=== PATIENT | male | born 1955 | race Caucasian/White ===

== ENCOUNTER 2020-07-26 08:10 | Inpatient (IN) | payer OTHER ==
[~2020-07-26] VITALS: Ht 177.8 cm; Wt 98.9 kg
[~2020-07-26 08:10] MED LIST: NAPROSYN500 MG PO
[2020-07-26 08:51] LABS: BASOPHILS 0.7 % (0-2); EOSINOPHILS 2.9 % (0-7); HEMOGLOBIN 14.7 g/dL (13.5-17.5); IMMATURE GRANULOCYTES 0.2 % (0-5); LYMPHOCYTES 23.7 % (15-50); MCH 30.9 pg (26.0-34.0); MCHC 32.7 g/dL (31.0-37.0); MCV 94.5 fL (80.0-100.0); MEAN PLATELET VOLUME 10.3 fL (7.4-10.4); MONOCYTES 6.8 % (2-11); NEUTROPHILS 65.7 % (40-80); PLATELET COUNT 267 10x3/uL (130-400); RBC 4.76 10x6/uL (4.20-6.10); RDW 13.1 % (11.5-14.5); WBC 4.6 10x3/uL (4.8-10.8)
[2020-07-26 09:08] LABS: ANION GAP 8.6 mmol/L (8-16); CALCIUM 8.7 mg/dL (8.5-10.1); CARBON DIOXIDE 32.5 mmol/L (21.0-32.0); CREATININE - SERUM 1.1 mg/dL (0.6-1.3); POTASSIUM - SERUM 5.1 mmol/L (3.5-5.1)
[2020-07-26 09:29] VITALS: BP 152/68; BMI 31.3
[2020-07-26 18:04] VITALS: BP 122/70
--- NOTE | 2020-07-26 18:13 | NUR ---
RECEIVED PATIENT FROM RECOVERY. A&O, SLIGHTLY DROWSY. FAMILY AT BEDSIDE. NO C/O PAIN. NO S/S OF ACUTE DISTRESS NOTED. WOUND VAC TO ABDOMEN. PIZNAO CATH PRESENT. ON 4L 02, NC. SCDS ON. VITALS STABLE. DENIES ANY NEEDS AT THIS TIME. CALL LIGHT IN REACH. WILL CONTINUE TO MONITOR.
--- NOTE | 2020-07-26 19:45 | NUR ---
ASSUMED CARE OF PATIENT AT 1900, PATIENT RESTING QUIETLY WITH EYES CLOSED, AWAKENS TO VERBAL STIMULI, NO DISTRESS NOTED, PATIENT C/O NAUSEA, ZOFRAN 4MG IVP GIVEN, WOUND VAC TO ABDOMEN INTACT, DRESSING TO LEFT AND RIGHT ABDOMEN C/D/I, PIZANO DRAINING VIA GRAVITY WITHOUT COMPLICATIONS, SCD'S ON, IV INFUSING WITHOUT COMPLICATIONS, WILL CONTINUE TO MONITOR PATIENT, CALL LIGHT WITHIN REACH
[2020-07-26 20:00] VITALS: BP 127/83
[2020-07-26 22:04] VITALS: BP 127/82; BMI 31.3
--- NOTE | 2020-07-27 01:00 | NUR ---
DILAUDID HOT BOX SPOTTER INFUSING WITHOUT COMPLICATION, EXPLAINED TO PATIENT HOW TO USE, PATIENT VERBALIZED UNDERSTANDING, PATIENT REQUESTED ICE PACK FOR ABDOMEN, WILL CONTINUE TO MONITOR PATIENT, CALL LIGHT WITHIN REACH
[2020-07-27 04:00] VITALS: BP 124/78
[2020-07-27 07:08] LABS: MAGNESIUM - SERUM 1.9 mg/dL (1.8-2.4); PHOSPHOROUS 2.7 mg/dL (2.5-4.9)
[2020-07-27 09:34] VITALS: BP 129/76
[2020-07-27 13:32] VITALS: BP 123/69
[2020-07-27 17:45] VITALS: BP 124/74
[2020-07-27 20:00] VITALS: BP 130/74
[2020-07-28 07:03] LABS: BASOPHILS 0.1 % (0-2); EOSINOPHILS 0.4 % (0-7); HEMATOCRIT 37.1 % (42.0-54.0); IMMATURE GRANULOCYTES 0.3 % (0-5); LYMPHOCYTES 11.7 % (15-50); MCH 30.7 pg (26.0-34.0); MCHC 32.3 g/dL (31.0-37.0); MCV 94.9 fL (80.0-100.0); MEAN PLATELET VOLUME 10.9 fL (7.4-10.4); MONOCYTES 10.2 % (2-11); NEUTROPHILS 77.3 % (40-80); PLATELET COUNT 241 10x3/uL (130-400); RBC 3.91 10x6/uL (4.20-6.10); RDW 13.5 % (11.5-14.5)
[2020-07-28 07:22] LABS: ALBUMIN 2.8 g/dL (3.4-5.0); ALKALINE PHOSPHATASE 67 U/L (30-120); ALT (SGPT) 15 U/L (10-68); BILIRUBIN - TOTAL 0.78 mg/dL (0.2-1.3); CALC OSMOLALITY 276 mosm/kg (275-300); CALCIUM 7.8 mg/dL (8.5-10.1); CHLORIDE - SERUM 106 mmol/L (98-107); GLUCOSE 95 mg/dL (74-106); MAGNESIUM - SERUM 2.1 mg/dL (1.8-2.4); PROTEIN - SERUM 5.7 g/dL (6.4-8.2); SODIUM 138 mmol/L (136-145); TROPONIN-I < 0.017 ng/mL (0.000-0.060); UREA NITROGEN 16 mg/dL (7-18); eGFR NON AFRICAN AMERICAN 80 mL/min (90-120)
[2020-07-28 07:26] LABS: PHOSPHOROUS 1.6 mg/dL (2.5-4.9)
[2020-07-28 09:17] VITALS: BP 113/75; BP 96/42
[2020-07-28 13:30] VITALS: BP 131/84
--- NOTE | 2020-07-28 13:45 | NUR ---
PT ALERT X 4. BREATH SOUNDS DIMINISHED TO LOWER LOBES, PT REPORTING FEELING WHEEZY. GIVEN INCENTIVE SPIROMETER AND EDUCATED ON USE AND PURPOSE. IV TO LEFT HAND PATENT, DRESSING CDI. WOUND VAC TO MIDLINE ABDOMEN, BORDERED GAUZE TO BILAT OUTER ABDOMEN. PIZANO IN PLACE. PT REPORTING PAIN OF 5/10, TOOL MACHINE SET UP OPERATOR IN USE, WILL CONTINUE TO MONITOR. AT BEDSIDE. BED LOW, CALL LIGHT IN REACH. NO OTHER NEEDS AT THIS TIME.
[2020-07-28 19:09] VITALS: BP 129/83
--- NOTE | 2020-07-28 19:44 | NUR ---
PATIENT SITTING UP IN THE CHAIR WITH NO S/S OF DISTRESS AND DENIES NEEDS AT THIS TIME. BED IN LOWEST POSITION AND CALL LIGHT WITHIN REACH. ENCOURAGED THE PATIENT TO CALL IF HE HAS NEEDS. WILL CONTINUE TO MONITOR.
[2020-07-28 20:00] VITALS: BP 139/89
[2020-07-29] VITALS: BP 122/71
[2020-07-29 04:00] VITALS: BP 122/71
[2020-07-29 05:30] LABS: BASOPHILS 0.4 % (0-2); EOSINOPHILS 3.3 % (0-7); HEMATOCRIT 36.8 % (42.0-54.0); IMMATURE GRANULOCYTES 0.3 % (0-5); LYMPHOCYTES 18.6 % (15-50); MCH 31.1 pg (26.0-34.0); MCHC 32.6 g/dL (31.0-37.0); MCV 95.3 fL (80.0-100.0); MEAN PLATELET VOLUME 10.5 fL (7.4-10.4); MONOCYTES 12.2 % (2-11); NEUTROPHILS 65.2 % (40-80); PLATELET COUNT 236 10x3/uL (130-400); RBC 3.86 10x6/uL (4.20-6.10); RDW 13.5 % (11.5-14.5); WBC 7.2 10x3/uL (4.8-10.8)
[2020-07-29 05:59] LABS: ALBUMIN 2.6 g/dL (3.4-5.0); ALKALINE PHOSPHATASE 61 U/L (30-120); ALT (SGPT) 18 U/L (10-68); BILIRUBIN - TOTAL 0.79 mg/dL (0.2-1.3); CALC OSMOLALITY 276 mosm/kg (275-300); CALCIUM 7.9 mg/dL (8.5-10.1); CARBON DIOXIDE 25.9 mmol/L (21.0-32.0); CHLORIDE - SERUM 106 mmol/L (98-107); CREATININE - SERUM 0.8 mg/dL (0.6-1.3); GLUCOSE 86 mg/dL (74-106); POTASSIUM - SERUM 3.8 mmol/L (3.5-5.1); PROTEIN - SERUM 5.8 g/dL (6.4-8.2); SODIUM 138 mmol/L (136-145); UREA NITROGEN 18 mg/dL (7-18); eGFR NON AFRICAN AMERICAN > 90 mL/min (90-120)
[2020-07-29 08:56] VITALS: BP 119/73
--- NOTE | 2020-07-29 11:34 | NUR ---
PT ALERT X 4. BREATH SOUNDS CLEAR BILAT. IV TO LEFT HAND PATENT, DRESSING CDI. BOWEL SOUNDS HYPO X 4, PT CONTINUES TO ATTEMPT TO HAVE BM, UNSUCCESSFUL. WOUND VAC TO MIDLINE INCISION, BORDERED GAUZE TO BILAT SIDES OF ABDOMEN. PIZANO IN PLACE. PT UP TO CHAIR. BED LOW, CALL LIGHT IN REACH. NO OTHER NEEDS AT THIS TIME.
[2020-07-29 12:39] VITALS: BP 112/74
[2020-07-29 15:00] VITALS: Ht 177.8 cm; Wt 98.9 kg
--- NOTE | 2020-07-29 17:14 | OP ---
PATIENT NAME: WESTON KAY MEDICAL RECORD: [id number] :59 LOCATION:D[id number] ADMISSION DATE:07/26/20 SURGEON: DOMINICK REYES MD DATE OF OPERATION: 07/26/2020 PREOPERATIVE DIAGNOSIS: Symptomatic ventral incisional hernias. POSTOPERATIVE DIAGNOSES: Multiple symptomatic incarcerated ventral incisional hernias with inability to approximate the rectus muscles in the midline utilizing traditional herniorrhaphy techniques. PROCEDURES: Open ventral incarcerated incisional hernia repairs with Ventralight ST mesh and the bilateral component separation technique. The myofascial release on the right was 18.5 cm and on the left was 19.5 cm. SURGEON: Dominick Reyes MD MOTOR SETTER: None. BLOOD LOSS: Please see the anesthesia sheet. COMPLICATIONS: None. The risks, possible complications and alternatives to the procedure were explained to the patient. He elects to proceed. The discussion specifically included, but was not limited to, bleeding requiring emergency reoperation, infection, intestinal injury. The patient thought this was going to be outpatient surgery or surgery where he would be in the hospital overnight. I told him that this is a fairly extensive abdominal operation and that he would be in the hospital, likely from 4-7 days. The hernia defect was a "Burundian cheese" type hernia defect where there were multiple hernias and it appeared that pretty much every place that a fascial suture had been placed. There was a hernia defect present. Most of the incarcerated contents included fat and preperitoneal fat and omentum only. There was one that contain a loop of small bowel. OPERATIVE COURSE: The patient was conveyed the operating room electively on 07/26/2020. General anesthesia was induced by the anesthesia staff. The abdomen was sterilely prepped and draped. A midline incision was accomplished. Sharp dissection was carried down through the skin and subcutaneous tissues. The peritoneal cavity was entered bluntly. I took down the falciform ligament utilizing the laparoscopic EnSeal device. I then excised some of the preperitoneal fat with the laparoscopic EnSeal device. There were adhesions including grade I, II, and III adhesions. These were lysed with the scissors. The portion of the adhesiolysis took about 25 minutes. I reduced all of the hernia defects. I irrigated and aspirated. There was no bleeding. The description of the hernia defects as listed above. I wanted to place my mesh intraabdominally or subfascially. I was unable to create a subfascial plane. OPERATIVE REPORT [id number] WESTON KAY Therefore, I wanted to place my mesh intraperitoneal. I tried to bring the rectus muscles together in the midline. I was unable to do this. On the left side, a parasagittal incision was accomplished between the anterior superior iliac spine and the right costal margin. Sharp dissection was carried down through the skin and subcutaneous tissues to the external oblique muscle and aponeurosis. This was divided with electrocautery. This was divided cephalad fairly extensively as well as caudad. Dimensions were obtained and these are listed above. Some additional finger dissection was performed underneath this myofascial release in order to allow for easy movement of the rectus abdominis muscles. Despite this release on the left side, I was unable to approximate the rectus muscles in the midline in a tensionless fashion. I went around to the right side. A parasagittal incision was accomplished. Sharp dissection was carried down through the skin and subcutaneous tissues. I identified the external oblique muscle. The muscle was incised with electrocautery. I was then able to insert my finger underneath the muscle and performed a myofascial release proximally and then distally. Some additional finger dissection was performed in order to free up the muscle and fascia. The dimensions were obtained. They are listed above. With his bilateral release, I was then able to bring the rectus abdominis muscles together in the midline. Intraabdominally, I placed the omentum over the small bowel. I placed a Ventralight ST mesh into the peritoneal cavity. The long axis was the cephalad caudad access. Utilizing a parachute type technique, I sutured 0 Surgidacs at 12, 3, 6, and 9 o'clock. Each one had 2 tags. At the 12 and 6 o'clock positions, I advanced a laparoscopic suture passer through the midline fascia and each time I grabbed a 0 Surgidac tag. I then tied the mesh. At the 3 and 9 o'clock positions, small skin incisions were accomplished. I advanced the laparoscopic suture passer through the skin and subcutaneous tissues and then through the abdominal wall. At each site, the laparoscopic suture passer was passed twice. Each time I grasped a tag of the suture. I then tied down the 3 o'clock position suture. I tacked the mesh to the overlying muscle and fascia with the SecureStrap Tacker. The midline fascia was approximated with a running looped #1 PDS from the cephalad caudad dimension. With these sutures, I incorporated the portion of the underlying mesh. In the midline, the subdermis was approximated with interrupted 3-0 Vicryls. The skin was approximated with metallic clips. Through the 2 myofascial release incisions, the subcutaneous tissues were closed with interrupted 3-0 Vicryl sutures. The external oblique aponeurosis was closed with 3-0 Vicryl sutures. The patient was then extubated and conveyed to post-anesthesia care unit where he was in stable condition. TRANSINT:[id number] Voice Confirmation ID: [id number] DOCUMENT ID: [id number] OPERATIVE REPORT [id number] WESTON KAY ROBERT MD at 1714 CC: IRENE REID [id number] DICTATION DATE: 07/29/20 1221 AUTOMATIC BUFFING WHEEL FORMER: 07/29/20 1707 ADM IN [facility] [address] [id number]
[2020-07-29 18:45] VITALS: BP 131/75
--- NOTE | 2020-07-29 19:00 | NUR ---
ASSUMED CARE OF PATIENT, PATIENT AWAKE SITTING UP IN CHAIR WATCHING TV, NO DISTRESS NOTED, IV INFUSING WITHOUT COMPLICATIONS, WOUND VA INTACT, PATIENT DENIES NEEDS AT THIS TIME, WILL CONTINUE TO MONITOR PATIENT, CALL LIGHT WITHIN REEACH
[2020-07-29 20:00] VITALS: BP 126/72
[2020-07-30 00:35] VITALS: BP 118/68
[2020-07-30 04:00] VITALS: BP 102/59
[2020-07-30 05:22] LABS: BASOPHILS 0.3 % (0-2); EOSINOPHILS 3.5 % (0-7); HEMATOCRIT 33.8 % (42.0-54.0); IMMATURE GRANULOCYTES 0.2 % (0-5); LYMPHOCYTES 12.6 % (15-50); MCH 30.6 pg (26.0-34.0); MCHC 32.5 g/dL (31.0-37.0); MCV 94.2 fL (80.0-100.0); MEAN PLATELET VOLUME 10.4 fL (7.4-10.4); MONOCYTES 13.6 % (2-11); NEUTROPHILS 69.8 % (40-80); PLATELET COUNT 248 10x3/uL (130-400); RBC 3.59 10x6/uL (4.20-6.10); RDW 12.8 % (11.5-14.5)
[2020-07-30 06:03] LABS: ALBUMIN 2.3 g/dL (3.4-5.0); ALKALINE PHOSPHATASE 50 U/L (30-120); ALT (SGPT) 19 U/L (10-68); BILIRUBIN - TOTAL 0.81 mg/dL (0.2-1.3); CALC OSMOLALITY 278 mosm/kg (275-300); CALCIUM 7.7 mg/dL (8.5-10.1); CARBON DIOXIDE 26.4 mmol/L (21.0-32.0); CHLORIDE - SERUM 106 mmol/L (98-107); CREATININE - SERUM 0.8 mg/dL (0.6-1.3); GLUCOSE 83 mg/dL (74-106); MAGNESIUM - SERUM 1.9 mg/dL (1.8-2.4); POTASSIUM - SERUM 3.7 mmol/L (3.5-5.1); PROTEIN - SERUM 5.3 g/dL (6.4-8.2); SODIUM 139 mmol/L (136-145); UREA NITROGEN 18 mg/dL (7-18); eGFR NON AFRICAN AMERICAN > 90 mL/min (90-120)
--- NOTE | 2020-07-30 08:00 | NUR ---
HE IS WALKING TO THE BATHROOM. HE HAS PASSED GAS X 2, NO BM YET. HE HAS A PIZANO. THIS FAMILY IS AT THE BEDSIDE. HE HAS A PROPERTY AND SUPPLY OFFICER. THE CALL LIGHT IS WITHIN REACH.
[2020-07-30 09:13] VITALS: BP 116/66
[2020-07-30 11:36] VITALS: BP 123/71
[2020-07-30 17:51] VITALS: BP 115/70; BP 125/73
--- NOTE | 2020-07-30 19:50 | NUR ---
SITTING UP IN CHAIR IN ROOM. ALERT AND ORIENTED X4. RESP EVEN AND NONLABORED. WOUND VAC NOTED TO MIDLINE ABD INCISION TO 125MMHG CONT SUCTION WITH NO DRAINAGE IN TUBING OR CANISTER. DRSG NOTED TO RT ABD, LT ABD AND MID LT ABD ARE C/D/I. STATES HE IS PASSING GAS BUT NO BM YET. ABD IS DISTENDED AND BS ARE HYPOACTIVE X4 QUADS. NS @ 100 MLHR INFUSING IN LT FOREARM. POLE FRAME CONSTRUCTION WORKER DILUADID IN USE. DENIES PAIN. CL IN REACH.
[2020-07-30 20:00] VITALS: BP 139/79
--- NOTE | 2020-07-30 22:00 | NUR ---
BACK TO BED WITH ASSIST X1. CL IN REACH.
--- NOTE | 2020-07-31 03:39 | NUR ---
HAS RESTED WELL SO FAR THIS SHIFT. NO DISTRESS. LYING IN BED WITH EYES CLOSED. RESP EVEN AND NONLABORED. CL IN REACH.
[2020-07-31 04:00] VITALS: BP 134/73
[2020-07-31 06:57] LABS: BASOPHILS 0.4 % (0-2); EOSINOPHILS 4.8 % (0-7); HEMATOCRIT 35.7 % (42.0-54.0); HEMOGLOBIN 11.7 g/dL (13.5-17.5); IMMATURE GRANULOCYTES 0.4 % (0-5); LYMPHOCYTES 19.7 % (15-50); MCH 30.5 pg (26.0-34.0); MCHC 32.8 g/dL (31.0-37.0); MCV 93.2 fL (80.0-100.0); MEAN PLATELET VOLUME 10.6 fL (7.4-10.4); MONOCYTES 12.2 % (2-11); NEUTROPHILS 62.5 % (40-80); PLATELET COUNT 285 10x3/uL (130-400); RBC 3.83 10x6/uL (4.20-6.10); WBC 5.2 10x3/uL (4.8-10.8)
[2020-07-31 07:29] LABS: ALBUMIN 2.6 g/dL (3.4-5.0); ALKALINE PHOSPHATASE 57 U/L (30-120); ALT (SGPT) 23 U/L (10-68); BILIRUBIN - TOTAL 0.83 mg/dL (0.2-1.3); CALC OSMOLALITY 277 mosm/kg (275-300); CHLORIDE - SERUM 105 mmol/L (98-107); CREATININE - SERUM 0.9 mg/dL (0.6-1.3); GLUCOSE 97 mg/dL (74-106); POTASSIUM - SERUM 3.5 mmol/L (3.5-5.1); PROTEIN - SERUM 5.7 g/dL (6.4-8.2); SODIUM 139 mmol/L (136-145); eGFR NON AFRICAN AMERICAN > 90 mL/min (90-120)
[2020-07-31 07:33] LABS: UREA NITROGEN 12 mg/dL (7-18)
--- NOTE | 2020-07-31 07:59 | NUR ---
PT RESTING IN BED WITH EYES OPEN CALL LIGHT IN REACH NO PROBLEMS WILL MONITER
[2020-07-31 09:35] VITALS: BP 138/82
[2020-07-31 13:25] VITALS: BP 121/76
--- NOTE | 2020-07-31 13:26 | MORECARE ---
CASE MANAGEMENT DISCHARGE SUMMARY PATIENT: WESTON KAY UNIT: [id number] ADM DATE: 07/26/20 AGE: 65 : 59 SEX: M ROOM/BED: D.2231 AUTHOR: LA ALLAN PHYSICIAN: REFERRING PHYSICIAN: GRACIA REYES MD DATE OF SERVICE: 07/31/20 Discharge Plan Patient Name: WESTON KAY Facility: [facility]:[place] : 1955 Planned Disposition: Home with Home Health Anticipated Discharge Date: Discharge Date: Expected LOS: Initial Reviewer: [email or web address] Initial Review Date: 07/31/2020 Generated: 07/31/20 2:25 pm Comments DCP- Discharge Planning Updated by [email or web address]: Rola Noble on 07/31/20 12:[address] Patient Name: WESTON KAY Admission Status: Elective Accout number: [id number] Admission Date: 07-26-2020 : 1955 Admission Diagnosis:INCISIONAL HERNIA WITH OBSTRUCTION, WITHOUT GANGRENE Attending: GRACIA REYES Current LOS: 5 Anticipated DC Date: Planned Disposition: Home with Home Health Primary Insurance: [facility] PPO Discharge Planning Comments: CM met with patient at bedside after explaining CM role and obtaining verbal consent. CM discussed availability / needs of home health, REHAB and medical equipment. STATES DR. REYES NURSE WAS HERE TODAY AND SAID SHE WOULD SET HIM UP WITH [facility] AND HE HAS A WOUND VAC. STATES POSSIBLE DC IS WEDNESDAY. CM TO FOLLOW AND ASSIST NEEDED WITH DC PLANNING/NEEDS. Special Delivery Mail Carrier: Rola Noble DCPIA - Discharge Planning Initial Assessment Updated by [email or web address]: Rola Noble on 07/31/20 1:19 pm * Is the patient Alert and Oriented? Yes * PCP REID * Pharmacy [facility]. * Preadmission Environment Home with Family * ADLs Independent * Equipment None * Community resources currently utilized None * Additional services required to return to the preadmission environment? Yes * Can the patient safely return to the preadmission environment? Yes * Has this patient been hospitalized within the prior 30 days at any hospital? No External Providers [facility] Next Contact Date: Service Request Date: Service Type: Resolution: Reviewer: Comments: Patient Name: WESTON KAY Page [phone] at 1326 All edits/amendments must be made on the electronic document DICTATION DATE: 07/31/201324 RECREATIONAL LEADER: HERNANDEZ 07/31/201324 RPT#: [id number] DC DATE: STATUS: ADM IN [facility] [address] [place] [address] END OF REPORT
--- NOTE | 2020-07-31 13:44 | MORECARE ---
CASE MANAGEMENT DISCHARGE SUMMARY PATIENT: WESTON KAY UNIT: [id number] ADM DATE: 07/26/20 AGE: 65 : 59 SEX: M ROOM/BED: D.2231 AUTHOR: LA ALLAN PHYSICIAN: REFERRING PHYSICIAN: GRACIA REYES MD DATE OF SERVICE: 07/31/20 Discharge Plan Patient Name: WESTON KAY Facility: [facility]:[place] : 1955 Planned Disposition: Home with Home Health Anticipated Discharge Date: Discharge Date: Expected LOS: Initial Reviewer: [email or web address] Initial Review Date: 07/31/2020 Generated: 07/31/20 2:43 pm Comments DCP- Discharge Planning Updated by [email or web address]: Rola Noble on 07/31/20 12:[address] Patient Name: WESTON KAY Admission Status: Elective Accout number: [id number] Admission Date: 07-26-2020 : 1955 Admission Diagnosis:INCISIONAL HERNIA WITH OBSTRUCTION, WITHOUT GANGRENE Attending: GRACIA REYES Current LOS: 5 Anticipated DC Date: Planned Disposition: Home with Home Health Primary Insurance: [facility] PPO Discharge Planning Comments: CM met with patient at bedside after explaining CM role and obtaining verbal consent. CM discussed availability / needs of home health, REHAB and medical equipment. STATES DR. REYES NURSE WAS HERE TODAY AND SAID SHE WOULD SET HIM UP WITH [facility] AND HE HAS A WOUND VAC. STATES POSSIBLE DC IS WEDNESDAY. CM TO FOLLOW AND ASSIST NEEDED WITH DC PLANNING/NEEDS. Assistant Loan Processor: Rola Noble Appended by Rola Noble on 07/31/2020 13:37 CDT: I HAVE FAXED FS TO [email or web address] WITH ANTICIPATED DC DATE OF WEDNESDAY. DCPIA - Discharge Planning Initial Assessment Updated by [email or web address]: Rola Noble on 07/31/20 1:19 pm * Is the patient Alert and Oriented? Yes * PCP REID * Pharmacy [facility]. * Preadmission Environment Home with Family * ADLs Independent * Equipment None * Community resources currently utilized None * Additional services required to return to the preadmission environment? Yes * Can the patient safely return to the preadmission environment? Yes * Has this patient been hospitalized within the prior 30 days at any hospital? No Last DP export: 07/31/20 12:26 pm Patient Name: WESTON KAY Page 13689 at 1344 All edits/amendments must be made on the electronic document DICTATION DATE: 07/31/20 1344 ART INSTALLER: HERNANDEZ 07/31/20 1344 RPT#: [id number] DC DATE: STATUS: ADM IN [facility] [address] [place] [address] END OF REPORT
--- NOTE | 2020-07-31 16:07 | NUR ---
UP IN CHAIR,WITHOUT NEEDS
--- NOTE | 2020-07-31 16:50 | NUR ---
PT RESTING IN BED WITH EYES OPEN CALL LIGHT IN REACH NO PROBLEMS WILL MONITER
[2020-07-31 17:36] VITALS: BP 109/66
--- NOTE | 2020-07-31 19:20 | NUR ---
LYING IN BED. ALERT AND ORIENTED X4. RESP EVEN AND NONLABORED. WOUND VAC NOTED TO MIDLINE ABD INCISION. LARGE DRSG NOTED TO LT AND RT ABD AND SMALL DRSG NOTED TO LT MID ABD ARE C/D/I. NO DRAINAGE NOTED IN WOUND VAC. AMBULATORY. NS @ 100 MLHR INFUSING IN LT FOREARM WITH DILAUDID HOBBER IN USE. RATES PAIN IN BACK 4 ON PAIN SCALE. NO DISTRESS. SR ELEVATED X2. CL IN REACH.
[2020-07-31 20:00] VITALS: BP 123/80
--- NOTE | 2020-08-01 01:09 | NUR ---
LYING ON LT SIDE IN BED WITH EYES CLOSED. RESP NONLABORED. NO DISTRESS. CL IN REACH.
[2020-08-01 04:00] VITALS: BP 123/73; BP 127/78
[2020-08-01 05:03] LABS: HEMATOCRIT 32.4 % (42.0-54.0); HEMOGLOBIN 10.9 g/dL (13.5-17.5); LYMPHOCYTES 23.9 % (15-50); MCH 31.3 pg (26.0-34.0); MCHC 33.6 g/dL (31.0-37.0); MCV 93.1 fL (80.0-100.0); MEAN PLATELET VOLUME 10.1 fL (7.4-10.4); NEUTROPHILS 61.9 % (40-80); PLATELET COUNT 240 10x3/uL (130-400); RBC 3.48 10x6/uL (4.20-6.10); RDW 12.7 % (11.5-14.5); WBC 4.9 10x3/uL (4.8-10.8)
[2020-08-01 05:18] LABS: ALBUMIN 2.4 g/dL (3.4-5.0); ALKALINE PHOSPHATASE 59 U/L (30-120); BILIRUBIN - TOTAL 0.73 mg/dL (0.2-1.3); CALC OSMOLALITY 276 mosm/kg (275-300); CALCIUM 7.7 mg/dL (8.5-10.1); CARBON DIOXIDE 28.2 mmol/L (21.0-32.0); CHLORIDE - SERUM 105 mmol/L (98-107); CREATININE - SERUM 0.9 mg/dL (0.6-1.3); GLUCOSE 98 mg/dL (74-106); MAGNESIUM - SERUM 1.8 mg/dL (1.8-2.4); POTASSIUM - SERUM 3.5 mmol/L (3.5-5.1); PROTEIN - SERUM 5.3 g/dL (6.4-8.2); SODIUM 139 mmol/L (136-145); UREA NITROGEN 9 mg/dL (7-18); eGFR NON AFRICAN AMERICAN > 90 mL/min (90-120)
[2020-08-01 05:24] LABS: ALT (SGPT) 33 U/L (10-68)
--- NOTE | 2020-08-01 06:18 | NUR ---
HAS RESTED WELL THIS SHIFT. LYING IN BED WITH EYES CLOSED. RESP NONLABORED. NO DISTRESS. CL IN REACH.
--- NOTE | 2020-08-01 08:56 | MORECARE ---
CASE MANAGEMENT DISCHARGE SUMMARY PATIENT: WESTON KAY UNIT: [id number] ADM DATE: 07/26/20 AGE: 65 : 59 SEX: M ROOM/BED: D.2231 AUTHOR: LA ALLAN PHYSICIAN: REFERRING PHYSICIAN: GRACIA REYES MD DATE OF SERVICE: 08/01/20 Discharge Plan Patient Name: WESTON KAY Facility: [facility]:[place] : 1955 Planned Disposition: Home with Home Health Anticipated Discharge Date: Discharge Date: Expected LOS: Initial Reviewer: [email or web address] Initial Review Date: 07/31/2020 Generated: 08/01/20 9:55 am Comments DCP- Discharge Planning Updated by [email or web address]: Rola Noble on 07/31/20 12:[address] Patient Name: WESTON KAY Admission Status: Elective Accout number: [id number] Admission Date: 07-26-2020 : 1955 Admission Diagnosis:INCISIONAL HERNIA WITH OBSTRUCTION, WITHOUT GANGRENE Attending: GRACIA REYES Current LOS: 5 Anticipated DC Date: Planned Disposition: Home with Home Health Primary Insurance: [facility] PPO Discharge Planning Comments: CM met with patient at bedside after explaining CM role and obtaining verbal consent. CM discussed availability / needs of home health, REHAB and medical equipment. STATES DR. REYES NURSE WAS HERE TODAY AND SAID SHE WOULD SET HIM UP WITH [facility] AND HE HAS A WOUND VAC. STATES POSSIBLE DC IS WEDNESDAY. CM TO FOLLOW AND ASSIST NEEDED WITH DC PLANNING/NEEDS. Safety Engineer: Rola Noble Appended by Rola Noble on 07/31/2020 13:37 CDT: I HAVE FAXED FS TO [employer] WITH ANTICIPATED DC DATE OF WEDNESDAY. DCPIA - Discharge Planning Initial Assessment Updated by [email or web address]: Rola Noble on 07/31/20 1:19 pm * Is the patient Alert and Oriented? Yes * PCP REID * Pharmacy [facility]. * Preadmission Environment Home with Family * ADLs Independent * Equipment None * Community resources currently utilized None * Additional services required to return to the preadmission environment? Yes * Can the patient safely return to the preadmission environment? Yes * Has this patient been hospitalized within the prior 30 days at any hospital? No External Providers External Provider: [facility] Next Contact Date: Service Request Date: Service Type: Resolution: Reviewer: Comments: Last DP export: 07/31/20 12:44 pm Patient Name: WESTON KAY Page 05400 at 0856 All edits/amendments must be made on the electronic document DICTATION DATE: 08/01/20854 BUSINESS IMPROVEMENT MANAGER: HERNANDEZ 08/01/20854 RPT#: [id number] DC DATE: STATUS: ADM IN [facility] [address] [place] [address] END OF REPORT
--- NOTE | 2020-08-01 09:04 | MORECARE ---
CASE MANAGEMENT DISCHARGE SUMMARY PATIENT: WESTON KAY UNIT: [id number] ADM DATE: 07/26/20 AGE: 65 : 59 SEX: M ROOM/BED: D.2231 AUTHOR: LA ALLAN PHYSICIAN: REFERRING PHYSICIAN: GRACIA REYES MD DATE OF SERVICE: 08/01/20 Discharge Plan Patient Name: WESTON KAY Facility: [facility]:[place] : 1955 Planned Disposition: Home with Home Health Anticipated Discharge Date: Discharge Date: Expected LOS: Initial Reviewer: [email or web address] Initial Review Date: 07/31/2020 Generated: 08/01/20 10:03 am Comments DCP- Discharge Planning Updated by [email or web address]: Rola Noble on 08/01/20 7:[address] Patient Name: WESTON KAY Admission Status: Elective Accout number: [id number] Admission Date: 07-26-2020 : 1955 Admission Diagnosis:INCISIONAL HERNIA WITH OBSTRUCTION, WITHOUT GANGRENE Attending: GRACIA REYES Current LOS: 6 Anticipated DC Date: Planned Disposition: Home with Home Health Primary Insurance: [employer] PPO Discharge Planning Comments: FAXED CLINICALS TO [facility] TO GET HOME WOUND VAC PROCESS STARTED. Manager Room: Rola Noble DCP- Discharge Planning Updated by [email or web address]: Rola Noble on 07/31/20 12:[address] Patient Name: WESTON KAY Admission Status: Elective Accout number: [id number] Admission Date: 07-26-2020 : 1955 Admission Diagnosis:INCISIONAL HERNIA WITH OBSTRUCTION, WITHOUT GANGRENE Attending: GRACIA REYES Current LOS: 5 Anticipated DC Date: Planned Disposition: Home with Home Health Primary Insurance: [employer] PPO Discharge Planning Comments: CM met with patient at bedside after explaining CM role and obtaining verbal consent. CM discussed availability / needs of home health, REHAB and medical equipment. STATES DR. REYES NURSE WAS HERE TODAY AND SAID SHE WOULD SET HIM UP WITH [facility] AND HE HAS A WOUND VAC. STATES POSSIBLE DC IS WEDNESDAY. CM TO FOLLOW AND ASSIST NEEDED WITH DC PLANNING/NEEDS. Manager Room: Rola Noble Appended by Rola Noble on 07/31/2020 13:37 CDT: I HAVE FAXED FS TO [facility] WITH ANTICIPATED DC DATE OF WEDNESDAY. DCPIA - Discharge Planning Initial Assessment Updated by [email or web address]: Rola Noble on 07/31/20 1:19 pm * Is the patient Alert and Oriented? Yes * PCP [place] * Pharmacy [facility]. * Preadmission Environment Home with Family * ADLs Independent * Equipment None * Community resources currently utilized None * Additional services required to return to the preadmission environment? Yes * Can the patient safely return to the preadmission environment? Yes * Has this patient been hospitalized within the prior 30 days at any hospital? No Last DP export: 08/01/20 7:56 am Patient Name: WESTON KAY Page 27879 at 0904 All edits/amendments must be made on the electronic document DICTATION DATE: 08/01/20902 EMBROIDERY DESIGNER: HERNANDEZ 08/01/20902 RPT#: [id number] DC DATE: STATUS: ADM IN [facility] [address] [place] [address] END OF REPORT
[2020-08-01 10:22] VITALS: BP 113/64
[2020-08-01 13:46] VITALS: BP 113/70
--- NOTE | 2020-08-01 14:35 | NUR ---
Nutrition follow-up: Diet had advanced to regular and po intake 100% of last 3 meals Labs reviewed Wt: 217# No BM charted Pt tolerating diet at this time RDN following.
[2020-08-01 18:07] VITALS: BP 111/67
[2020-08-01 20:00] VITALS: BP 118/67
[2020-08-02 04:00] VITALS: BP 118/67
--- NOTE | 2020-08-02 05:01 | NUR ---
ASSESSED AT THE BEGINNING OF THE SHIFT. PT IS ALERT AND ORIENTED, ABLE TO GET UP AND ABOUT. HE IS WANTING TO GO [place] WITH HIS DOCTORS PERMISSION AND STATES HE WILL HAVE A BM TONIGHT OR IN AM SO THE MD WILL DISCHARGE HIM. HIS DRESSING ARE INTACT AND CONNECTED TO THE WOUND VAC ORDERED. HE HAS APPEARED TO SBE ASLEEP MOST OF THE NIGHT.
[2020-08-02 06:03] LABS: BASOPHILS 1.1 % (0-2); EOSINOPHILS 4.5 % (0-7); HEMATOCRIT 34.3 % (42.0-54.0); HEMOGLOBIN 11.2 g/dL (13.5-17.5); IMMATURE GRANULOCYTES 0.6 % (0-5); MCH 30.7 pg (26.0-34.0); MCHC 32.7 g/dL (31.0-37.0); MONOCYTES 12.7 % (2-11); NEUTROPHILS 56.1 % (40-80); PLATELET COUNT 264 10x3/uL (130-400); RBC 3.65 10x6/uL (4.20-6.10); RDW 13.1 % (11.5-14.5); WBC 5.4 10x3/uL (4.8-10.8)
[2020-08-02 06:16] LABS: ALBUMIN 2.6 g/dL (3.4-5.0); ALKALINE PHOSPHATASE 61 U/L (30-120); ALT (SGPT) 37 U/L (10-68); BILIRUBIN - TOTAL 0.74 mg/dL (0.2-1.3); CALC OSMOLALITY 274 mosm/kg (275-300); CALCIUM 8.1 mg/dL (8.5-10.1); CARBON DIOXIDE 26.7 mmol/L (21.0-32.0); CHLORIDE - SERUM 105 mmol/L (98-107); GLUCOSE 97 mg/dL (74-106); MAGNESIUM - SERUM 1.9 mg/dL (1.8-2.4); POTASSIUM - SERUM 3.7 mmol/L (3.5-5.1); PROTEIN - SERUM 5.6 g/dL (6.4-8.2); SODIUM 138 mmol/L (136-145); UREA NITROGEN 9 mg/dL (7-18); eGFR NON AFRICAN AMERICAN 80 mL/min (90-120)
--- NOTE | 2020-08-02 07:15 | NUR ---
REC'D IN BED AWAKE AND ALERT. RESP EVEN AND UNLABORED WITH NO DISTRESS NOTED, CAN EXPRESS NEEDS AND WANTS. NO C/O NOTED OR VOICED. DRESSING CLEAN DRY AND INTACT TO ABD. ASSESSMENT COMPLETED. C/L IN REACH AT BEDSIDE.
[2020-08-02 09:52] VITALS: BP 108/65
[2020-08-02] MEDS ORDERED: POTASSIUM CHLO20 MEQ PO (10:09)
[2020-08-02] MEDS ORDERED: HYDROCODON-ACE1 EA10 PO (10:09)
[2020-08-02] MEDS ORDERED: COLACE100 MG PO (10:22)
--- NOTE | 2020-08-02 12:25 | MORECARE ---
CASE MANAGEMENT DISCHARGE SUMMARY PATIENT: WESTON KAY UNIT: [id number] ADM DATE: 07/26/20 AGE: 65 : 59 SEX: M ROOM/BED: D.2231 AUTHOR: LA ALLAN PHYSICIAN: REFERRING PHYSICIAN: GRACIA REYES MD DATE OF SERVICE: 08/02/20 Discharge Plan Patient Name: WESTON KAY Facility: [facility]:[place] : 1955 Planned Disposition: Home with Home Health Anticipated Discharge Date: Discharge Date: Expected LOS: Initial Reviewer: [email or web address] Initial Review Date: 07/31/2020 Generated: 08/02/20 1:24 pm Comments DCP- Discharge Planning Updated by [email or web address]: Rola Noble on 08/02/20 11:[address] Patient Name: WESTON KAY Admission Status: Elective Accout number: [id number] Admission Date: 07-26-2020 : 1955 Admission Diagnosis:INCISIONAL HERNIA WITH OBSTRUCTION, WITHOUT GANGRENE Attending: GRACIA REYES Current LOS: 7 Anticipated DC Date: Planned Disposition: Home with Home Health Primary Insurance: [facility] PPO Discharge Planning Comments: FAXED ORDER AND DC TO [facility]. WAITING CALL BACK FOR TIME AND DAY OF START OF CARE. CM TO FOLLOW AND ASSIST NEEDED. Instrument Calibrator: Rola Noble DCP- Discharge Planning Updated by [email or web address]: Rola Noble on 08/01/20 7:[address] Patient Name: WESTON KAY Admission Status: Elective Accout number: [id number] Admission Date: 07-26-2020 : 1955 Admission Diagnosis:INCISIONAL HERNIA WITH OBSTRUCTION, WITHOUT GANGRENE Attending: GRACIA REYES Current LOS: 6 Anticipated DC Date: Planned Disposition: Home with Home Health Primary Insurance: [facility] PPO Discharge Planning Comments: FAXED CLINICALS TO [facility] TO GET HOME WOUND VAC PROCESS STARTED. Instrument Calibrator: Rola Noble DCP- Discharge Planning Updated by [id number]: Rola Noble on 07/31/20 12:[address] Patient Name: WESTON KAY Admission Status: Elective Accout number: [id number] Admission Date: 07-26-2020 : 1955 Admission Diagnosis:INCISIONAL HERNIA WITH OBSTRUCTION, WITHOUT GANGRENE Attending: GRACIA REYES Current LOS: 5 Anticipated DC Date: Planned Disposition: Home with Home Health Primary Insurance: [facility] PPO Discharge Planning Comments: CM met with patient at bedside after explaining CM role and obtaining verbal consent. CM discussed availability / needs of home health, REHAB and medical equipment. STATES DR. REYES NURSE WAS HERE TODAY AND SAID SHE WOULD SET HIM UP WITH [facility] AND HE HAS A WOUND VAC. STATES POSSIBLE DC IS WEDNESDAY. CM TO FOLLOW AND ASSIST NEEDED WITH DC PLANNING/NEEDS. Instrument Calibrator: Rola Noble Appended by Rola Noble on 07/31/2020 13:37 CDT: I HAVE FAXED FS TO [facility] WITH ANTICIPATED DC DATE OF WEDNESDAY. DCPIA - Discharge Planning Initial Assessment Updated by [email or web address]: Rola Noble on 07/31/20 1:19 pm * Is the patient Alert and Oriented? Yes * PCP REID * Pharmacy [facility] [address]. * Preadmission Environment Home with Family * ADLs Independent * Equipment None * Community resources currently utilized None * Additional services required to return to the preadmission environment? Yes * Can the patient safely return to the preadmission environment? Yes * Has this patient been hospitalized within the prior 30 days at any hospital? No Last DP export: 08/01/20 8:03 am Patient Name: WESTON KAY Page [id number] at 1225 All edits/amendments must be made on the electronic document DICTATION DATE: 08/02/20 1225 LOADING UNIT TOOL SETTER: HERNANDEZ 08/02/20 1225 RPT#: [id number] DC DATE: STATUS: ADM IN [facility] [address] [place] [address] END OF REPORT
--- NOTE | 2020-08-02 12:39 | NUR ---
I have reviewed this patient and I concur with the Shift Assessment completed by the Licensed Practical Nurse today this shift.
[2020-08-02 13:23] VITALS: BP 133/85
--- NOTE | 2020-08-02 15:12 | NUR ---
DC HOME AT THIS TIME VOICES UNDERSTANDING OF DC INSTRUCTION. WOUND VAC SWITCHED OVER TO PREVENA PRIOR TO DC. STABLE CONDITION UPON DEPARTURE WITH ALL PERSONAL BELONGING.
--- NOTE | 2020-08-06 16:01 | MORECARE ---
CASE MANAGEMENT DISCHARGE SUMMARY PATIENT: WESTON KAY UNIT: [id number] ADM DATE: 07/26/20 AGE: 65 : 59 SEX: M ROOM/BED: D.2231 AUTHOR: LA ALLAN PHYSICIAN: REFERRING PHYSICIAN: GRACIA REYES MD DATE OF SERVICE: 08/06/20 Discharge Plan Patient Name: WESTON KAY Facility: [facility]:[place] : 1955 Planned Disposition: Home with Home Health Anticipated Discharge Date: Discharge Date: 08/02/2020 Expected LOS: Initial Reviewer: [email or web address] Initial Review Date: 07/31/2020 Generated: 08/06/20 5:01 pm Comments DCP- Discharge Planning Updated by [email or web address]: Rola Noble on 08/02/20 11:[address] Patient Name: WESTON KAY Admission Status: Elective Accout number: [id number] Admission Date: 07-26-2020 : 1955 Admission Diagnosis:INCISIONAL HERNIA WITH OBSTRUCTION, WITHOUT GANGRENE Attending: GRACIA REYES Current LOS: 7 Anticipated DC Date: Planned Disposition: Home with Home Health Primary Insurance: [facility] PPO Discharge Planning Comments: FAXED ORDER AND DC TO [facility]. WAITING CALL BACK FOR TIME AND DAY OF START OF CARE. CM TO FOLLOW AND ASSIST NEEDED. Carpet Sewer: Rola Noble DCP- Discharge Planning Updated by [email or web address]: Rola Noble on 08/01/20 7:[address] Patient Name: WESTON KAY Admission Status: Elective Accout number: [id number] Admission Date: 07-26-2020 : 1955 Admission Diagnosis:INCISIONAL HERNIA WITH OBSTRUCTION, WITHOUT GANGRENE Attending: GRACIA REYES Current LOS: 6 Anticipated DC Date: Planned Disposition: Home with Home Health Primary Insurance: [facility] PPO Discharge Planning Comments: FAXED CLINICALS TO [facility] TO GET HOME WOUND VAC PROCESS STARTED. Carpet Sewer: Rola Noble DCP- Discharge Planning Updated by [email or web address]: Rola Noble on 07/31/20 12:[address] Patient Name: WESTON KAY Admission Status: Elective Accout number: [id number] Admission Date: 07-26-2020 : 1955 Admission Diagnosis:INCISIONAL HERNIA WITH OBSTRUCTION, WITHOUT GANGRENE Attending: GRACIA REYES Current LOS: 5 Anticipated DC Date: Planned Disposition: Home with Home Health Primary Insurance: [facility] PPO Discharge Planning Comments: CM met with patient at bedside after explaining CM role and obtaining verbal consent. CM discussed availability / needs of home health, REHAB and medical equipment. STATES DR. REYES NURSE WAS HERE TODAY AND SAID SHE WOULD SET HIM UP WITH [facility] AND HE HAS A WOUND VAC. STATES POSSIBLE DC IS WEDNESDAY. CM TO FOLLOW AND ASSIST NEEDED WITH DC PLANNING/NEEDS. Carpet Sewer: Rola Noble Appended by Rola Noble on 07/31/2020 13:37 CDT: I HAVE FAXED FS TO [facility] WITH ANTICIPATED DC DATE OF WEDNESDAY. DCPIA - Discharge Planning Initial Assessment Updated by [email or web address]: Rola Noble on 07/31/20 1:19 pm * Is the patient Alert and Oriented? Yes * PCP REID * Pharmacy [facility] [address]. * Preadmission Environment Home with Family * ADLs Independent * Equipment None * Community resources currently utilized None * Additional services required to return to the preadmission environment? Yes * Can the patient safely return to the preadmission environment? Yes * Has this patient been hospitalized within the prior 30 days at any hospital? No Last DP export: 08/02/20 11:25 am Patient Name: WESTON KAY Page [id number] at 1601 All edits/amendments must be made on the electronic document DICTATION DATE: 08/06/20 1601 DIRECTOR LEARNING AND DEVELOPMENT: HERNANDEZ 08/06/20 1601 RPT#: [id number] DC DATE:08/02/20 STATUS: DIS IN [facility] [address] [place] [address] END OF REPORT
== END 2020-08-02 17:17 | disposition home health service (06) | DRG 355 ==
LOC: D.OPS 08:10 → D.MS 17:40 → D.OPS 17:51 → D.MS 08-02 17:17
PROVIDERS: Family Medicine; ADMIT Surgery; ATTEND Surgery
PROC: 0WUF0JZ Supplement Abdominal Wall with Synthetic Substitute, Open Approach (ICD-10-PCS; principal; 2020-07-26 10:30)
DX: K43.0 Incisional hernia with obstruction, without gangrene (principal); D64.9 Anemia, unspecified; Z87.891 Personal history of nicotine dependence; E83.39 Other disorders of phosphorus metabolism